=== PATIENT | female | born 1935 | race Asian ===

== ENCOUNTER 2022-10-03 11:26 | Inpatient (IN) | payer OTHER ==
[~2022-10-03] VITALS: Ht 152.4 cm; Wt 59.0 kg
[~2022-10-03 11:26] MED LIST: AMLO10TA1 PO; AMOX500C25 PO; CALC500C17 PO; CALC625T27 PO; CARV12.5 PO; CLAR500T14 PO; DIAZ2TAB6 PO; FURO-572 PO; GABA100C PO; LOSA50TA57 PO; LOSA50TA66 PO; METF-1243 PO; METR500T1 PO; MULT1TAB99 PO; PANT40EC PO; [UNRECOGNIZED DRUG - CODE] PO
[2022-10-03 11:28] VITALS: BP 141/56
--- NOTE | 2022-10-03 11:39 | NUR ---
RADIOLOGY CALLED FOR CODE BRAIN
--- NOTE | 2022-10-03 11:50 | NUR ---
87/F BIB DAUGHTER FROM HOME D/T CONFUSION ONSET NOTICED SINCE LAST NIGHT ACCOMPANIED BY GEN WEAKNESS AND COUGH X 1 WK. PT'S DAUGHTER STATES PT BASELINE AAO4 BUT NOW AAO2. BASELINE NON AMBULATORY, EQUAL SALESPERSON TRAILERS AND MOTOR HOMES STRENGTH B/L UPPER EXT. CLEAR SPEECH NOTED PER DAUGHTER. NO FACIAL DROOP NOTED. NOT EATING WELL STARTING TODAY. BACK FROM CT. ON MONITOR, ON GOWN. PMH: DM, HTN, ASTHMA
--- NOTE | 2022-10-03 12:12 | NUR ---
XR AT BEDSIDE
--- NOTE | 2022-10-03 12:14 | NUR ---
TRAFFIC SIGNAL TECHNICIAN AT BEDSIDE
--- NOTE | 2022-10-03 12:37 | NUR ---
CONTACT INFO FOR CHAYITO BALBUENA: [phone]
[2022-10-03 12:43] LABS: BASOPHILS % (AUTO) 0.2 % (0.0-2.0); EOSINOPHILS # (AUTO) 0.1 K/uL (0-0.4); EOSINOPHILS % (AUTO) 0.8 % (0.0-4.0); HEMATOCRIT 28.1 % (36-48); HEMOGLOBIN 9.5 g/dL (12.0-16.0); LYMPHOCYTES # (AUTO) 0.6 K/uL (2.5-16.5); LYMPHOCYTES % (AUTO) 5.4 % (20.5-51.1); MEAN CORPUSCULAR HEMOGLOBIN 31 pg (27-31); MEAN CORPUSCULAR HGB CONC 34 g/dL (33-37); MEAN CORPUSCULAR VOLUME 90.1 fL (80-94); MONOCYTES # (AUTO) 1.1 K/uL (0.8-1.0); MONOCYTES % (AUTO) 9.4 % (1.7-9.3); NEUTROPHILS # (AUTO) 9.4 K/uL (1.8-7.7); NEUTROPHILS % (AUTO) 84.2 % (42.2-75.2); PLATELET COUNT (AUTO) 451 K/uL (140-450); RED BLOOD CELL COUNT(AUTO) 3.11 MIL/uL (4.20-5.40); RED CELL DISTRIBUTION WIDTH 12.5 % (11.6-13.7); WHITE BLOOD COUNT (AUTO) 11.2 K/uL (4.8-10.8)
[2022-10-03] MEDS ORDERED: OSC500 PO (12:48)
[2022-10-03] MEDS ORDERED: LOVA20TA8 PO (12:48)
[2022-10-03] MEDS ORDERED: GLIP10TE PO (12:48)
[2022-10-03 13:03] LABS: RSV NEGATIVE (NEGATIVE)
[2022-10-03 13:28] LABS: ALBUMIN 3.7 g/dL (3.4-5.0); ASPARTATE AMINOTRANSFERASE 97 U/L (15-37); CARBON DIOXIDE 27.5 mmol/L (21-32); CREATININE 0.5 mg/dL (0.6-1.3); GLUCOSE 140 mg/dL (74-106); TOTAL BILIRUBIN 0.5 mg/dL (0.0-1.0); UREA NITROGEN, BLOOD 10 mg/dL (7-18)
[2022-10-03 13:43] LABS: ANION GAP 11.2 (8-16); CHLORIDE 83 mmol/L (98-107); POTASSIUM 3.7 mmol/L (3.5-5.1)
[2022-10-03 13:45] LABS: SODIUM SERUM 118 mmol/L (136-145)
[2022-10-03 13:54] LABS: PROTHROMBIN TIME 9.5 secs (10.8-13.4)
[2022-10-03] MEDS ORDERED: ACETAMINOPHEN 325 MG TAB PO PRN (14:10)
[2022-10-03] MEDS ORDERED: ONDANSETRON 4 MG/2 ML VIAL IVP PRN (14:10)
[2022-10-03] MEDS ORDERED: LORazepam 2 MG/ML VIAL IVP PRN (14:10)
[2022-10-03] MEDS ORDERED: ZOLPIDEM 10 MG TAB PO PRN (14:10)
[2022-10-03] MEDS ORDERED: MORPHINE SULFATE 2 MG/ML SYR IVP PRN (14:10)
[2022-10-03] MEDS ORDERED: DOCUSATE SODIUM 100 MG GELCAP PO PRN (14:10)
[2022-10-03] MEDS ORDERED: MAG SULF 2000 MG/WATER PREMIX 50 ML IV PRN (14:10)
[2022-10-03] MEDS ORDERED: NACL 0.9% 1,000 ML IV ONE ×2 (14:15→14:30)
[2022-10-03 14:21] LABS: APPEARANCE,URINE CLEAR (CLEAR); BILIRUBIN,URINE NEGATIVE (NEGATIVE); BLOOD, URINE 1+ (NEGATIVE); COLOR,URINE YELLOW (YELLOW); LEUKOCYTE ESTERASE ,URINE NEGATIVE (NEGATIVE); NITRITE, URINE NEGATIVE (NEGATIVE); PH,URINE 6.5 (5.0-9.0); UGLUCOSE 1+ (NEGATIVE)
--- NOTE | 2022-10-03 14:26 | NUR ---
PT AGITATED AND CONFUSED AT THIS TIME. ACTIVELY TRYING TO GET OUT OF BED. REASSURED PATIENT, ASKING FOR ANY NEEDS BUT CONFUSED. WILL CARRY OUT ORDER FOR AGITATION
[2022-10-03 14:54] LABS: RBC,URINE 0-5 /HPF (0-5); WBC,URINE 0-5 /HPF (0-5)
--- NOTE | 2022-10-03 15:30 | NUR ---
Patient will be admitted to care of DR BESS. Admited to TELE. Will go to room 110A. Belongings list completed. Report to EDNA HERNANDEZ.
--- NOTE | 2022-10-03 15:35 | NUR ---
RECEIVED PT FROM ER. REPORT WAS GIVEN BY ESLIN FOR CONTINUITY OF CARE. INITIAL ASSESSMENT DONE. IV SITE INTACT AT LT AC. IVF INFUSING WELL. PT IS SLEEPING AT THIS TIME. INCONTINENT TO BOWEL AND BLADDER. NO S/SX OF PAIN OR DISCOMFORT. CALL LIGHT KEPT WITHIN REACH. WILL CONTINUE TO MONITOR.
[2022-10-03 18:19] LABS: ANION GAP 12.1 (8-16); CARBON DIOXIDE 25.2 mmol/L (21-32); CHLORIDE 87 mmol/L (98-107); CREATININE 0.5 mg/dL (0.6-1.3); GLUCOSE 103 mg/dL (74-106); POTASSIUM 3.3 mmol/L (3.5-5.1); SODIUM SERUM 121 mmol/L (136-145); UREA NITROGEN, BLOOD 7 mg/dL (7-18)
--- NOTE | 2022-10-03 19:20 | NUR ---
BEDSIDE REPORT GIVEN TO NIGHT NURSE ANNALIZA FOR CONTINUITY OF CARE. REMAINS STABLE.
--- NOTE | 2022-10-03 19:30 | NUR ---
RECEIVED PATIENT, ASLEEP, NO SIGNS OF DISTRESS NOTED, NO SIGNS OF PAIN NOTED. IV ACCESS SITE ON LEFT AC, G20, RUNNING NS @75ML/HR. SAFETY PRECAUTIONS IN PLACE.
[2022-10-03 20:00] VITALS: BP 117/57
[2022-10-03] MEDS: carvediloL 12.5 MG TAB PO SCH (21:30)
[2022-10-03] MEDS: POTASSIUM CHLORIDE 10 MEQ TABER PO PRN (21:37)
--- NOTE | 2022-10-03 21:37 | NUR ---
40 MEQ K DUR GIVEN, POTASSIUM LEVEL 3.3.
[2022-10-04] VITALS: BP 121/46
--- NOTE | 2022-10-04 00:10 | NUR ---
VITALS TAKEN T 97.4, P 63, BP 121/46, RESP 18, AND O2 SATS @100% ON ROOM AIR. BREATHING EVEN AND NON LABORED ON ROOM AIR. SAFETY PRECAUTIONS IN PLACE.
[2022-10-04 04:00] VITALS: BP 130/53
--- NOTE | 2022-10-04 04:05 | NUR ---
MORNING CARE DONE. NO S/S OF DISTRESS NOTED. PATIENT REPOSITIONED. ALL SAFETY MEASURES IN PLACE.
[2022-10-04 06:42] LABS: BASOPHILS % (AUTO) 0.2 % (0.0-2.0); EOSINOPHILS # (AUTO) 0.1 K/uL (0-0.4); HEMATOCRIT 27.7 % (36-48); HEMOGLOBIN 9.4 g/dL (12.0-16.0); LYMPHOCYTES # (AUTO) 0.8 K/uL (2.5-16.5); LYMPHOCYTES % (AUTO) 8.4 % (20.5-51.1); MEAN CORPUSCULAR HEMOGLOBIN 31 pg (27-31); MEAN CORPUSCULAR HGB CONC 34 g/dL (33-37); MEAN CORPUSCULAR VOLUME 91.3 fL (80-94); MONOCYTES # (AUTO) 0.9 K/uL (0.8-1.0); MONOCYTES % (AUTO) 9.4 % (1.7-9.3); NEUTROPHILS # (AUTO) 7.8 K/uL (1.8-7.7); PLATELET COUNT (AUTO) 396 K/uL (140-450); RED BLOOD CELL COUNT(AUTO) 3.03 MIL/uL (4.20-5.40); RED CELL DISTRIBUTION WIDTH 12.8 % (11.6-13.7); WHITE BLOOD COUNT (AUTO) 9.7 K/uL (4.8-10.8)
[2022-10-04 06:45] LABS: CARBON DIOXIDE 25.2 mmol/L (21-32); CHLORIDE 91 mmol/L (98-107); CREATININE 0.4 mg/dL (0.6-1.3); GLUCOSE 66 mg/dL (74-106); POTASSIUM 4.2 mmol/L (3.5-5.1); SODIUM SERUM 125 mmol/L (136-145); UREA NITROGEN, BLOOD 6 mg/dL (7-18)
--- NOTE | 2022-10-04 07:21 | NUR ---
ENDORSED PATIENT TO DAY NURSE FOR CONTINUITY OF CARE. NEEDS MET THROUGHOUT THE SHIFT. PATIENT IS IN STABLE CONDITION.
--- NOTE | 2022-10-04 07:26 | NUR ---
PT RESTING IN BED. NO GUARDING, GRIMACING OR SOB. NO ACUTE DISTRESS NOTED AT THIS TIME. [id number].
[2022-10-04 08:00] VITALS: BP 136/57
[2022-10-04] MEDS: SODIUM CHLORIDE 1 GM TAB PO SCH (09:00)
[2022-10-04] MEDS: carvediloL 12.5 MG TAB PO SCH ×2 (09:04→20:06)
--- NOTE | 2022-10-04 09:12 | NUR ---
PATIENT HAS BEEN SCREENED AND CATEGORIZED MODERATE NUTRITION RISK. PATIENT WILL BE SEEN WITHIN 3-5 DAYS OF ADMISSION. REVIEWED BY ALEENA AMARAL RD
[2022-10-04 12:00] VITALS: BP 159/72
[2022-10-04] MEDS: NACL 0.9% 1,000 ML IV SCH (12:21)
[2022-10-04 16:00] VITALS: BP 114/52
--- NOTE | 2022-10-04 16:18 | NUR ---
DC PLANNING SW OUTREACHED TO PTS DAUGHTER MARCELA, TO GATHER COLLATERAL INFORMATION. MARCELA REPORTS PT RESIDES IN A SINGLE STORY HOME WITH HER AND HER FAMILY AT THE ADDRESS LISTED ON FILE. MARCELA IDENTIFIED HERSELF, AND MINDA LUU, SON, . MARCELA REPORTS SHE IS PTS DPOA. PT IS REPORTED TO MEET WITH PCP NEEDED, LAST VISIT JUL 30. PT IS REPORTED TO BE MEDICATION COMPLIANT AND RECEIVES MEDICATION FROM [employer] [facility] IN [place], WHEN NEEDED. PT IS REPORTED TO HAVE ADEQUATE FOOD IN THE HOME AND RECEIVES [place] BENEFITS OF ROUGHLY 200/MONTHLY. PT IS REPORTED TO BE PRIMARILY BED BOUND AND REQUIRES ASSISTANCE WITH ALL ADL'S. MARCELA REPORTS SHE IS PT'S IHSS CAREGIVER AND RECEIVES ROUGHLY 102HRS/MONTHLY. MARCELA REPORTS BEING UNABLE TO CARE FOR HER MOTHER SHE IS BECOMING TOO HEAVY TO CARE FOR ALONE. MARCELA REQUESTING SNF PLACEMENT FOR PT. EXPLAINED TO MARCELA HOW SNF PLACEMENT TYPICALLY WORKS ANS IS BASED ON RX OF DOCTOR AND/OR PHYSICAL THERAPIST, MARCELA IN UNDERSTANDING. TENTATIVE DC PLAN IS FOR PT TO DC TO SNF IF CRITERIA IS MET. ENDORSED TO CM. Addendum: 10/04/22 at 1620 by Star ESPINOSA Amended: Links added.
--- NOTE | 2022-10-04 16:51 | NUR ---
PT TRANSFERRED TO ICU PER ORDERS. AMBULATED TO THE W/C WITH ASSIST ON 2L O2 VIA N/C. NO SOB, GUARDING OR GRIMACING. NO ACUTE DISTRESS NOTED AT THIS TIME. [id number].
--- NOTE | 2022-10-04 19:31 | NUR ---
WRONG ENTRY ON THIS PT. NOT AN ICU TRANSFER. [id number].
--- NOTE | 2022-10-04 19:32 | NUR ---
RECEIVED PATIENT LYING ON THE BED, IS AWAKE, ALERT TO PERSON, NO SIGNS OF DISTRESS NOTED, NO SIGNS OF PAIN NOTED. IV NS ON LEFT AC, G20, RUNNING @60ML/HR, LINE PATENT AND INTACT. CALL LIGHT WITHIN REACH.
[2022-10-04 20:00] VITALS: BP 143/52
[2022-10-04] MEDS: TIMOLOL OP 0.5% 5 ML BTL BOTH EYES SCH (20:07)
--- NOTE | 2022-10-04 20:10 | NUR ---
SCHEDULED MEDICATIONS GIVEN ORDERED.
--- NOTE | 2022-10-04 23:13 | NUR ---
NEW IV SITE ON LEFT HAND, G22, PATENT AND INTACT, RUNNING NS @60 ML/HR.
[2022-10-05] VITALS: BP 152/57
[2022-10-05] MEDS: NACL 0.9% 1,000 ML IV SCH ×2 (01:15→17:09)
--- NOTE | 2022-10-05 02:48 | NUR ---
PATIENT IS ASLEEP, BREATHING EVEN AND NON LABORED, NO SIGNS OF PAIN NOTED, NO SIGNS OF DISTRESS NOTED. CALL LIGHT WITHIN REACH, BED IN LOW AND LOCKED POSITION.
[2022-10-05 04:00] VITALS: BP 151/51
--- NOTE | 2022-10-05 04:20 | NUR ---
MORNING CARE DONE. CALL LIGHT WITHIN REACH.
[2022-10-05 06:22] LABS: BASOPHILS % (AUTO) 0.3 % (0.0-2.0); EOSINOPHILS # (AUTO) 0.1 K/uL (0-0.4); EOSINOPHILS % (AUTO) 0.5 % (0.0-4.0); HEMATOCRIT 26.9 % (36-48); HEMOGLOBIN 9.1 g/dL (12.0-16.0); LYMPHOCYTES % (AUTO) 7.3 % (20.5-51.1); MEAN CORPUSCULAR HEMOGLOBIN 31 pg (27-31); MEAN CORPUSCULAR HGB CONC 34 g/dL (33-37); MEAN CORPUSCULAR VOLUME 91.8 fL (80-94); MONOCYTES # (AUTO) 1.5 K/uL (0.8-1.0); MONOCYTES % (AUTO) 10.6 % (1.7-9.3); NEUTROPHILS # (AUTO) 11.1 K/uL (1.8-7.7); NEUTROPHILS % (AUTO) 81.3 % (42.2-75.2); PLATELET COUNT (AUTO) 394 K/uL (140-450); RED BLOOD CELL COUNT(AUTO) 2.93 MIL/uL (4.20-5.40); RED CELL DISTRIBUTION WIDTH 13.2 % (11.6-13.7); WHITE BLOOD COUNT (AUTO) 13.7 K/uL (4.8-10.8)
[2022-10-05 06:50] LABS: ANION GAP 12.2 (8-16); CARBON DIOXIDE 23.4 mmol/L (21-32); CHLORIDE 92 mmol/L (98-107); CREATININE 0.5 mg/dL (0.6-1.3); GLUCOSE 176 mg/dL (74-106); POTASSIUM 3.6 mmol/L (3.5-5.1); SODIUM SERUM 124 mmol/L (136-145); UREA NITROGEN, BLOOD 7 mg/dL (7-18)
--- NOTE | 2022-10-05 07:05 | NUR ---
RECEIVED REPORT FROM FLEET SERVICE CLERK NURSE FOR CONTINUITY OF CARE. PTS STABLE AT THIS TIME.
--- NOTE | 2022-10-05 07:09 | NUR ---
ENDORSED PATIENT TO DAY NURSE FOR CONTINUITY OF CARE. NEEDS MET THROUGHOUT THE SHIFT. PATIENT IN STABLE CONDITION.
[2022-10-05 08:00] VITALS: BP 148/66
[2022-10-05] MEDS ORDERED: DEXTROSE 50% 50 ML SYR IVP PRN (08:50)
[2022-10-05] MEDS: SODIUM CHLORIDE 1 GM TAB PO SCH (09:30)
[2022-10-05] MEDS: carvediloL 12.5 MG TAB PO SCH ×2 (09:32→21:05)
[2022-10-05] MEDS: TIMOLOL OP 0.5% 5 ML BTL BOTH EYES SCH ×2 (09:33→21:03)
[2022-10-05] MEDS: BLOOD GLUCOSE MONITORING 1 DEV DEV FS SCH ×3 (11:43→20:52)
[2022-10-05 12:00] VITALS: BP 135/75
[2022-10-05 16:00] VITALS: BP 152/91
[2022-10-05] MEDS: INSULIN LISPRO SLIDING SCALE 100 UNITS/ML VIAL SUBQ PRN ×2 (17:27→20:57)
--- NOTE | 2022-10-05 19:17 | NUR ---
RECEIVED ENDORSEMENT FROM DAY SHIFT NURSE DEANNA FOR CONTINUITY OF CARE. PT IS ON BED AWAKE, NOTED SLEEPY AND CONFUSED. PT IS NON AMBULATORY. IV SITE IS ON RIGHT WRIST 20G WITH NORMAL SALINE INFUSING WELL AT 90ML/HR. PT IS INCONTINENT.
--- NOTE | 2022-10-05 19:18 | NUR ---
ENDORSED PT TO LOAN REVIEW MANAGER NURSE FOR CONTINUITY OF CARE. PT STABLE AT THIS TIME.
[2022-10-05 20:00] VITALS: BP 145/53
--- NOTE | 2022-10-05 20:57 | NUR ---
BLOOD SUGAR [id number] M= 199 = 2 UNITS HUMOLOG INSULIN ADMINISTERED.
--- NOTE | 2022-10-05 21:00 | NUR ---
PT IS AWAKE AND CONFUSED. PT NEEDS VERBAL PROMPTS TO TAKE HER NIGHT MEDICATIONS.
[2022-10-06] VITALS: BP 106/41
[2022-10-06] MEDS: NACL 0.9% 1,000 ML IV SCH ×2 (03:00→11:51)
[2022-10-06 04:00] VITALS: BP 125/43
[2022-10-06 06:38] LABS: BASOPHILS # (AUTO) 0.1 K/uL (0.00-0.22); BASOPHILS % (AUTO) 0.6 % (0.0-2.0); EOSINOPHILS # (AUTO) 0.2 K/uL (0-0.4); EOSINOPHILS % (AUTO) 1.6 % (0.0-4.0); HEMATOCRIT 24.7 % (36-48); HEMOGLOBIN 8.3 g/dL (12.0-16.0); LYMPHOCYTES # (AUTO) 1.6 K/uL (2.5-16.5); LYMPHOCYTES % (AUTO) 14.5 % (20.5-51.1); MEAN CORPUSCULAR HEMOGLOBIN 31 pg (27-31); MEAN CORPUSCULAR HGB CONC 34 g/dL (33-37); MEAN CORPUSCULAR VOLUME 92.1 fL (80-94); MONOCYTES # (AUTO) 1.3 K/uL (0.8-1.0); MONOCYTES % (AUTO) 11.8 % (1.7-9.3); NEUTROPHILS # (AUTO) 8.1 K/uL (1.8-7.7); NEUTROPHILS % (AUTO) 71.5 % (42.2-75.2); PLATELET COUNT (AUTO) 352 K/uL (140-450); RED BLOOD CELL COUNT(AUTO) 2.68 MIL/uL (4.20-5.40); RED CELL DISTRIBUTION WIDTH 12.7 % (11.6-13.7); WHITE BLOOD COUNT (AUTO) 11.4 K/uL (4.8-10.8)
--- NOTE | 2022-10-06 07:15 | NUR ---
RECEIVED REPORT FROM RIB KNITTER NURSE FOR CONTINUITY OF CARE. PTS STABLE AT THIS TIME.
[2022-10-06 07:25] LABS: ANION GAP 12.2 (8-16); CARBON DIOXIDE 23.1 mmol/L (21-32); CHLORIDE 96 mmol/L (98-107); CREATININE 0.5 mg/dL (0.6-1.3); GLUCOSE 108 mg/dL (74-106); POTASSIUM 3.3 mmol/L (3.5-5.1); SODIUM SERUM 128 mmol/L (136-145); UREA NITROGEN, BLOOD 8 mg/dL (7-18)
[2022-10-06 07:28] LABS: THYROID STIMULATING HORMONE 0.93 uIU/mL (0.34-3.74); URIC ACID 3.4 mg/dL (2.6-7.2)
--- NOTE | 2022-10-06 07:44 | NUR ---
BLOOD SUGAR CHECKED = 103, NO SLIDING SCALE COVERAGE, NO INSULIN NEEDED.
[2022-10-06] MEDS: BLOOD GLUCOSE MONITORING 1 DEV DEV FS SCH ×4 (07:55→20:31)
[2022-10-06 08:00] VITALS: BP 136/55
[2022-10-06] MEDS: TIMOLOL OP 0.5% 5 ML BTL BOTH EYES SCH ×2 (09:11→20:36)
[2022-10-06] MEDS: MAGNESIUM OXIDE 400 MG TAB PO SCH (09:12)
[2022-10-06] MEDS: POTASSIUM CHLORIDE 10 MEQ TABER PO PRN (09:12)
[2022-10-06] MEDS: SODIUM CHLORIDE 1 GM TAB PO SCH (09:13)
[2022-10-06] MEDS: carvediloL 12.5 MG TAB PO SCH ×2 (09:13→20:35)
[2022-10-06] MEDS: INSULIN LISPRO SLIDING SCALE 100 UNITS/ML VIAL SUBQ PRN ×3 (11:55→20:41)
[2022-10-06 12:00] VITALS: BP 120/53
[2022-10-06 16:00] VITALS: BP 149/59
--- NOTE | 2022-10-06 19:05 | NUR ---
ENDORSED PT TO PORTFOLIO ANALYST NURSE HUGO/BIB FOR CONTINUITY OF CARE. PT IS STABLE.
--- NOTE | 2022-10-06 19:09 | NUR ---
RECEIVED PT ON BED AWAKE & ALERT. FAMILY IS ON BED SIDE. IV SITE INTACT ON RIGHT WRIST 20G AND INFUSING WELL NS AT 90ML/HR. PT IS ON REGULAR DIET. URINE SAMPLE TAKEN BY DAY SHIFT NURSE, WAITING FOR RESULTS. PT IS ON [place].
--- NOTE | 2022-10-06 19:10 | NUR ---
ENDORSED PT TO ERP IMPLEMENTATION CONSULTANT NURSE HUGO/BIB FOR CONTINUITY OF CARE. PT IS STABLE. Addendum: 10/06/22 at 1913 by Tali Hoffman RN WRONG PATIENT
[2022-10-06 20:00] VITALS: BP 141/57
--- NOTE | 2022-10-06 20:41 | NUR ---
PT BLOOD SUGAR = 239 = 4 UNITS HUMOLOG INSULIN.
[2022-10-06 22:17] LABS: CREATININE,URINE RANDOM 22 mg/dL (30-125); POTASSIUM,URINE RANDOM 10 mmol/L (12-75); URINE SODIUM, RANDOM 58 mmol/l (40-220)
[2022-10-07] VITALS: BP 112/56
--- NOTE | 2022-10-07 00:20 | NUR ---
PT ASLEEP. NO SOB OR DISTRESS. NO FACIAL GRIMACING.
[2022-10-07] MEDS: NACL 0.9% 1,000 ML IV SCH ×2 (01:47→12:48)
[2022-10-07 04:00] VITALS: BP 156/63
[2022-10-07] MEDS: BLOOD GLUCOSE MONITORING 1 DEV DEV FS SCH ×2 (06:53→12:03)
--- NOTE | 2022-10-07 07:19 | NUR ---
GOT REPORT FROM THE NIGHT NURSE, PT IS AWAKE NO SOB.[id number]
[2022-10-07 08:00] VITALS: BP 152/56
[2022-10-07 08:04] LABS: BASOPHILS # (AUTO) 0.1 K/uL (0.00-0.22); EOSINOPHILS # (AUTO) 0.3 K/uL (0-0.4); EOSINOPHILS % (AUTO) 4.4 % (0.0-4.0); HEMATOCRIT 26.6 % (36-48); HEMOGLOBIN 8.8 g/dL (12.0-16.0); LYMPHOCYTES # (AUTO) 1.1 K/uL (2.5-16.5); LYMPHOCYTES % (AUTO) 15.9 % (20.5-51.1); MEAN CORPUSCULAR HEMOGLOBIN 31 pg (27-31); MEAN CORPUSCULAR HGB CONC 33 g/dL (33-37); MEAN CORPUSCULAR VOLUME 92.6 fL (80-94); MONOCYTES # (AUTO) 0.9 K/uL (0.8-1.0); MONOCYTES % (AUTO) 13.2 % (1.7-9.3); NEUTROPHILS # (AUTO) 4.7 K/uL (1.8-7.7); NEUTROPHILS % (AUTO) 65.5 % (42.2-75.2); PLATELET COUNT (AUTO) 359 K/uL (140-450); RED BLOOD CELL COUNT(AUTO) 2.87 MIL/uL (4.20-5.40); RED CELL DISTRIBUTION WIDTH 13.1 % (11.6-13.7); WHITE BLOOD COUNT (AUTO) 7.2 K/uL (4.8-10.8)
[2022-10-07 08:12] LABS: ANION GAP 11.9 (8-16); CARBON DIOXIDE 21.9 mmol/L (21-32); CHLORIDE 99 mmol/L (98-107); CREATININE 0.5 mg/dL (0.6-1.3); GLUCOSE 229 mg/dL (74-106); POTASSIUM 3.8 mmol/L (3.5-5.1); SODIUM SERUM 129 mmol/L (136-145); UREA NITROGEN, BLOOD 10 mg/dL (7-18)
[2022-10-07] MEDS: carvediloL 12.5 MG TAB PO SCH (09:01)
[2022-10-07] MEDS: SODIUM CHLORIDE 1 GM TAB PO SCH (09:01)
[2022-10-07] MEDS: MAGNESIUM OXIDE 400 MG TAB PO SCH (09:02)
[2022-10-07] MEDS: TIMOLOL OP 0.5% 5 ML BTL BOTH EYES SCH (09:03)
--- NOTE | 2022-10-07 10:59 | NUR ---
DC PLANNING: ATTEMPTED TO MEET WITH THE PATIENT AT THE BEDSIDE TO DISCUSS DC PLANNING. PATIENT IS ASLEEP, AROUSABLE TO NAME. HOWEVER, WENT BACK TO SLEEP. CONTACTED PATIENT'S DAUGHTER MARCELA (DPGILLIAN) TO DISCUSSED DC PLANNING TO [facility] AND IS IN AGREEMENT. PER MARCELA, SHE PREFERS FOR PATIENT TO GO TO [facility]. INFORMED MARCELA THAT THERE IS NO GUARANTEE THAT [facility] HAS A BED AT THIS TIME. MARCELA STATED THAT SHE SPOKE TO KAL [facility] AT [facility] AND WAS TOLD THAT THEY HAVE A BED AVAILABLE TODAY. REFERRAL SENT. WILL FOLLOW UP. Addendum: 10/07/22 at 1326 by Shyann Wilson RN DC PLANNING: RECEIVED A CALL FROM [facility] STATED ACCEPTED PATIENT CAN GO TO ROOM 113 BED 1 [facility] WILL ARRANGE TRANSPORT. CM TO FOLLOW Addendum: 10/07/22 at 1341 by Shyann Wilson RN DC PLANNING: PATIENT GOT ACCEPTED AT [facility] CAN GO TO ROOM [address] QUEZADA # TO GIVE REPORT [phone] PER [facility] WILL ARRANGE TRANSPORT WITH [facility] TRANSPORT ROTATING EQUIPMENT ENGINEER TIME WILL BE BETWEEN 2-3 HRS NOTIFIED JENNIFER MANUEL CM TO FOLLOW Addendum: 10/07/22 at 1358 by Jennifer Tellez PATIENT'S SISTER MARCELA MADE AWARE THAT [facility] ACCEPTED PATIENT AND WILL BE DISCHARGING TODAY. ROOM NUMBER, ACCEPTING DOCTOR, ADDRESS AND PHONE NUMBER PROVIDED TO MARCELA. PATIENT'S SISTER MARCELA WAS APPRECIATIVE OF THE CALL.
[2022-10-07] MEDS: INSULIN LISPRO SLIDING SCALE 100 UNITS/ML VIAL SUBQ PRN (11:58)
[2022-10-07 12:00] VITALS: BP 159/69
[2022-10-07] MEDS ORDERED: DOCU-299 PO (12:14)
[2022-10-07] MEDS ORDERED: TIM.5OS BOTH EYES (12:14)
[2022-10-07] MEDS ORDERED: SODI100076 PO (12:14)
--- NOTE | 2022-10-07 12:21 | NUR ---
PT. WITH LOW EUGENIO SCALE AT MODERATE TO HIGH RISK, CONTINUE TO FOLLOW PRESSURE INJURY PREVENTION INTERVENTIONS. -POSITIONING: TURN AND REPOSITION PATIENT Q 2H OR SOONER USE PILLOWS TO KEEP BONY PROMINENCES FROM DIRECT CONTACT WITH SURFACES USE REPOSITIONING WEDGES TO PROVIDE 30-DEGREE ANGLE FOR SIDE LYING POSITIONS OFFLOADING OR FOAM DRESSING TO ALL TUBING TO PREVENT MEDICAL DEVICES RELATED PRESSURE INJURY -RE-EVALUATING AND MANAGING INCONTINENCE MONITOR SKIN CONDITION DURING POSITION CHANGE DO NOT MASSAGE REDNESS, BONY PROMINENCES FREQUENT MERLY-CARE AND PROVIDE BARRIER CREAMS PRN IF SOILING MOISTURE CONTROL BY OFFER BED GARCIA/URINAL /ABSORBENT PAD TO WICK AND HOLD MOISTURE KEEP SKIN DRY AND PROTECT FROM FRICTION -MANAGE FRICTION/SHEAR/MOBILITY KEEP HOB AT THE LOWEST LEVEL OF ELEVATION NO MORE THAN 30 DEGREE UNLESS OTHERWISE CONTRAINDICATED USE LIFT SHEET OR TRANSFER DEVICE TO MOVE PATIENT AND PREVENT LATERAL SHEER. PROTECT HEELS, ELBOWS BONY PROMINENCES WITH SKIN BERRIES OR FOAM DRESSING IF EXPOSED TO FRICTION OFFLOAD BILATERAL HEELS BY PLACING PILLOWS UNDER CALVES AT ALL TIMES, UNLESS OTHERWISE CONTRAINDICATED -PRESSURE REDISTRIBUTION SURFACE THERAPY MARNIE ISOFLEX MATTRESS -NUTRITION: PLEASE FOLLOW RD RECOMMENDATIONS AND OFFER NUTRITION SUPPLEMENTS IF ORDERED. PLEASE CONTACT WOUND CARE NURSE FOR ANY QUESTION AND CHANGE OF WOUND CONDITION.
--- NOTE | 2022-10-07 17:09 | NUR ---
PT DISCHARGED TO [facility] DISCHARGE PAPER GIVEN, TRANSPORT PICKED PT, I V AND ID BAND REMOVED.[id number]
== END 2022-10-07 17:10 | DRG 640 ==
LOC: MED 11:26 → MTU 14:09
PROVIDERS: ADMIT Family Medicine; ATTEND Family Medicine
DX: E87.1 Hypo-osmolality and hyponatremia (principal); G93.41 Metabolic encephalopathy; M62.82 Rhabdomyolysis; E86.0 Dehydration; E87.6 Hypokalemia; E87.8 Other disorders of electrolyte and fluid balance, not elsewhere classified; E83.51 Hypocalcemia; D64.9 Anemia, unspecified; I10 Essential (primary) hypertension; F03.90 Unspecified dementia, unspecified severity, without behavioral disturbance, psychotic disturbance, mood disturbance, and anxiety; J45.909 Unspecified asthma, uncomplicated; Z20.822 Contact with and (suspected) exposure to COVID-19; E11.40 Type 2 diabetes mellitus with diabetic neuropathy, unspecified; Z90.49 Acquired absence of other specified parts of digestive tract; Z88.8 Allergy status to other drugs, medicaments and biological substances
CPT/HCPCS: 36415; 70450; 71045; 80048; 80053; 81001; 82533; 82550; 82553; 82570; 82948; 83605; 83735; 83880; 83935; 84133; 84300; 84443; 84484; 84550; 85025; 85610; 85730; 87040; 87081; 87086; 87420; 93005; 96361; 96374; 97110; 97112; 97163-GP; 97530; 99291; J1815; J2060; J3475; J7070; Q0092